=== PATIENT | female | born 2000 ===

== ENCOUNTER 2021-09-15 17:30 | Inpatient (IN) | payer MEDICAID, OTHER ==
[~2021-09-15] VITALS: Ht 160 cm; Wt 80.2 kg
[2021-09-15] MEDS ORDERED: SODIUM CHLORIDE 0.9% 1,000 ML IV ONE (22:00)
[2021-09-15] MEDS ORDERED: MORPHINE SULFATE 4 MG/ML SYR/VIAL IV ONE (22:00)
[2021-09-15] MEDS ORDERED: ONDANSETRON HCL 4 MG/2 ML VIAL IV ONE (22:00)
[2021-09-15] MEDS ORDERED: LIDOCAINE W/ EPINEPHRINE 2% INJ 20ML VIAL IJ ONE (23:45)
[2021-09-16] VITALS (7 sets, daily range): BP systolic 90–109; BP diastolic 48–62
[2021-09-16 01:21] LABS: Basophils # (auto) 0 10 ^3/uL (0-0.2); Basophils % (auto) 0.3 % (0.0-2.0); Eosinophils # (auto) 0.1 10 ^3/uL (0-0.8); Eosinophils % (auto) 0.7 % (0.0-7.0); Hematocrit 33.1 % (36.0-46.0); Hemoglobin 11.5 g/dL (12.2-16.2); Lymphocytes # (auto) 1.6 10 ^3/uL (0.4-5.4); Lymphocytes % (auto) 18.1 % (10.0-50.0); Mean Corpuscular Hemoglobin 31.5 pg (28.0-32.0); Mean Corpuscular Hgb Conc. 34.7 g/dL (32.0-36.0); Mean Corpuscular Volume 90.8 fL (80.0-100.0); Monocytes # (auto) 0.9 10 ^3/uL (0-1.3); Monocytes % (auto) 9.7 % (0.0-12.0); Neutrophils # (auto) 6.3 10 ^3/uL (1.6-8.6); Neutrophils % (auto) 71.2 % (37.0-80.0); Nucleated Red Blood Cells % 0.1 %; Red Blood Cells 3.64 10^6/uL (4.0-5.20); Red Cell Distribution Width 13.3 % (11.8-14.3); White Blood Cell 8.8 10^3/uL (4.4-10.8)
[2021-09-16] MEDS ORDERED: TEMAZEPAM 15 MG CAP PO PRN (01:30)
[2021-09-16] MEDS ORDERED: MORPHINE SULFATE 4 MG/ML SYR/VIAL IV PRN (01:30)
[2021-09-16] MEDS ORDERED: ACETAMINOPHEN 325 MG TAB PO PRN (01:30)
[2021-09-16] MEDS ORDERED: ONDANSETRON HCL 4 MG/2 ML VIAL IV PRN (01:30)
[2021-09-16 01:40] LABS: Albumin 3.2 g/dL (3.4-5.0); BUN/Creatinine Ratio 15.5
[2021-09-16 01:43] LABS: Bilirubin, Total 0.4 mg/dL (0.2-1.0); Total Protein 6.4 g/dL (6.4-8.2)
[2021-09-16] MEDS: HYDROcodone-ACET 5/325MG TAB PO PRN ×3 (04:46→20:10)
[2021-09-16] MEDS: PANTOPRAZOLE 40 MG TAB PO SCH (08:49)
[2021-09-17 01:14] LABS: Urine Bacteria FEW /hpf (None Seen); Urine Blood Negative /uL (Negative); Urine WBC 5 /hpf (0 - 5)
[2021-09-17 05:25] VITALS: BP 102/57
[2021-09-17 08:30] VITALS: BP 99/59
[2021-09-17] MEDS: PANTOPRAZOLE 40 MG TAB PO SCH (08:43)
[2021-09-17 12:25] VITALS: BP 143/80
[2021-09-17 13:11] VITALS: BP 143/80
== END 2021-09-17 15:05 | disposition home or self-care (01) | DRG 347 ==
LOC: EDBD 17:30 → ER 17:30 → OVERFLOW 09-16 01:20 → WEST WING 09-16 02:56
PROVIDERS: ADMIT Nurse Practitioner; ATTEND Internal Medicine Nephrology
DX: S32.029A Unspecified fracture of second lumbar vertebra, initial encounter for closed fracture (principal); S01.01XA Laceration without foreign body of scalp, initial encounter; S13.9XXA Sprain of joints and ligaments of unspecified parts of neck, initial encounter; Z20.822 Contact with and (suspected) exposure to COVID-19; W18.39XA Other fall on same level, initial encounter; Y93.23 Activity, snow (alpine) (downhill) skiing, snowboarding, sledding, tobogganing and snow tubing; Y92.89 Other specified places as the place of occurrence of the external cause; Y99.8 Other external cause status
CPT/HCPCS: 36415; 70450; 72125; 72131; 80053; 81001; 85025; 87426; 96361; 96374; 96375; 97163; G0378; J2405